=== PATIENT | female | born 1980 | race Two or more races ===

== ENCOUNTER 2019-10-30 02:17 | Emergency (ER) | payer OTHER ==
[2019-10-30 02:28] VITALS: BP 134/86
--- NOTE | 2019-10-30 03:01 | ED Physician Documentation ---
PD HPI HEENT - Stated complaint Stated Complaint: EAR PX,DIZZY - Chief complaint Chief Complaint: Heent - History obtained from History obtained from: Patient - History of Present Illness Timing - onset: How many days ago (2-3) Timing - details: Gradual onset, Constant, Waxing and waning Location: Right ear, Left ear, Sinuses Improves: Nothing Associated symptoms: Congestion, Rhinorrhea, Cough (mild nonproductive). No: Fever Recently seen: Not recently seen - Additional information Additional information: developed sinus congestion 2-3 days ago with sore throat. sore throat resolved but sinus congestion persists and became worse after she flew back from [place] yesterday, now associated with severe bilateral ear pain unrelieved with nyquil and decongestants. Review of Systems Constitutional: reports: Reviewed and negative Ears: reports: Ear pain PD PAST MEDICAL HISTORY - Past Medical History Past Medical History: Yes Neuro: Migraines [employer]: Other Psych: Post traumatic stress disorder, Other Other Past Medical History: Mood disorder; PCOS - Past Surgical History Past Surgical History: Yes Ortho: Spine surgery, Other - Present Medications Home Medications: Ambulatory Orders Medication Instructions Recorded Confirmed Azithromycin [Zithromax] 250 mg PO DAILY #4 tablet 10/30/19 Citalopram [CeleXA] 10 mg PO DAILY 10/30/19 10/30/19 Ibuprofen [Ibu] 600 mg PO Q6HR PRN #20 tablet 10/30/19 Meclizine [Antivert] 25 mg PO Q6H PRN #20 tablet 10/30/19 Topiramate [Topamax] 100 mg PO BID 10/30/19 10/30/19 - Allergies Allergies/Adverse Reactions: Allergies Allergy/AdvReac Type Severity Reaction Status Date / Time lisinopril Allergy Unknown Verified 10/30/19 02:26 [id number]-Edb Reductase Allergy Cramps Verified 10/30/19 02:26 Inhibitor - Social History Does the pt smoke?: Yes Smoking Status: Current every day smoker Does the pt drink ETOH?: No Does the pt have substance abuse?: No - Immunizations Immunizations are current?: Yes - POLST Patient has POLST: No PD ED PE NORMAL - Vitals Vital signs reviewed: Yes - General General: Alert and oriented X 3, No acute distress, Well developed/nourished - HEENT HEENT: Moist mucous membranes, Pharynx benign - Neck Neck: Supple, no meningeal sign - Respiratory Respiratory: No respiratory distress, Clear bilaterally PD ED PE EXPANDED - HEENT HEENT: R TM red, R TM bulging, L TM red, L TM bulging Results - Vitals Vitals: Oxygen O2 Source Room air PD MEDICAL DECISION MAKING - ED course Complexity details: considered differential, d/w patient Departure - Departure Disposition: 01 Home, Self Care Clinical Impression: Sinusitis Qualifiers: Sinusitis location: unspecified location Chronicity: acute Recurrence: not specified as recurrent Qualified Code(s): J01.90 - Acute sinusitis, unspecified Otitis media Qualifiers: Otitis media type: suppurative Chronicity: acute Laterality: bilateral Recurrence: not specified as recurrent Spontaneous tympanic membrane rupture: without spontaneous rupture Qualified Code(s): H66.003 - Acute suppurative otitis media without spontaneous rupture of ear drum, bilateral Condition: Good Instructions: ED Otitis Media Acute Adult, ED Sinusitis Abx Tx, ED Vertigo Unspecified Follow-Up: Sharon June MD [Primary Care Provider] - (3-4 days if not improving) Prescriptions: Ibuprofen [Ibu] 600 mg PO Q6HR PRN #20 tablet PRN Reason: Pain Azithromycin [Zithromax] 250 mg PO DAILY #4 tablet Meclizine [Antivert] 25 mg PO Q6H PRN #20 tablet PRN Reason: Vertigo Forms: Activity restrictions Discharge Date/Time: 10/30/19 03:33
[2019-10-30] MEDS ORDERED: MECLIZINE 12.5 MG TABLET PO STA (03:21)
[2019-10-30] MEDS ORDERED: AZITHROMYCIN 250 MG TABLET PO STA (03:22)
[2019-10-30] MEDS ORDERED: HYDROcod/ACETAM 5/325 MG TABLET PO STA (03:22)
== END 2019-10-30 03:33 | disposition home or self-care (01) ==
LOC: ED 02:17
DX: J01.90 Acute sinusitis, unspecified (principal); H66.003 Acute suppurative otitis media without spontaneous rupture of ear drum, bilateral; F17.200 Nicotine dependence, unspecified, uncomplicated
CPT/HCPCS: 99281; 99283; A9270